=== PATIENT | male | born 1965 | race Caucasian/White ===

== ENCOUNTER 2022-03-19 16:37 | Emergency (ER) | payer SELFPAY ==
[2022-03-19 16:37] VITALS: BP 152/116; PULSE 89; RESP 16; TEMP 36.2; O2SAT 96; BMI 34.0
--- NOTE | 2022-03-19 17:21 | US_ITS ---
INDICATION: PAIN abd EXAMINATION: Ultrasound US Abdomen RUQ (limited) TECHNIQUE: Jones scale and color doppler imaging was performed of the right upper quadrant. COMPARISON: None. FINDINGS: LIVER: Hyperechoic liver with blunted internal architecture. Hypodense area adjacent to the gallbladder compatible focal fatty sparing. No focal hepatic lesion. There is no free fluid. GALLBLADDER AND BILIARY TREE: No shadowing gallstone, pericholecystic fluid or gallbladder wall thickening is demonstrated. The proximal common bile duct measures 4 mm, which is within normal limits for the patient''s age. Sonographic Chavez''s sign: Negative. PANCREAS: No focal abnormality is demonstrated in the pancreas. No pancreatic ductal dilatation. Head and tail is obscured by gas. RIGHT KIDNEY: 11.9 x 5.9 x 4.8 cm. No hydronephrosis. US/Gallbladder IMPRESSION: Hyperechoic liver compatible with hepatocellular disease such as steatosis. No other acute sonographic abnormality is demonstrated in the right upper quadrant. Electronically Signed: Kevin Cortes MD at 18:39 EST ,
--- NOTE | 2022-03-19 17:22 | EDS_ITS ---
HPI HPI - GI History of Present Illness Chief Complaint: Abd Pain Informant: patient Narrative Narrative: Patient has had right upper quadrant pain all day every day for the last year. He states sometimes it is worse after meals but not always. It is not better after meals but he has taken apple cider vinegar and water and made it better. It is not colicky. It sometimes radiates up to his right shoulder but that has happened about 6 times in the past year. He denies any pleuritic nature, chest symptoms, cough, dyspnea. He has had subjective fevers and chills for the past week with the last one being today. He states in that amount of time, the right upper quadrant pain has not been worse or different, as a matter fact he states today it is not nearly as bad as it had been. He states out of the last year since he has had the symptoms, today here now is the first time that he has had any of this evaluated by a healthcare practitioner. When I asked him if he has been jaundiced or itched all over, he states a week ago, he thought maybe he was a little yellow but he has a chronic vision problem in his left eye, and he is not sure. He asks his significant other she states she did not notice any jaundice. He states his stools have been normal. When asked if he has had melena he is not sure but he states he has had no blood. No urinary symptoms. [facility] Medical History Detached retina Home Medications NK 03/19/22 [History Last Taken Unknown] Allergy/AdvReac Type Severity Reaction Status Date / Time Penicillins Allergy PT UNSURE Verified 03/19/22 16:45 OF REACTION Surgical History (Updated 03/19/22 @ 16:46 by Veronika Oglesby) History of appendectomy Social History Smoking Status: Current every day smoker tobacco type: e-cigarettes ROS ROS ED Constitutional Constitutional ED: Denies chills or fever(s) Eyes Eyes: Denies change in vision or diplopia ENT ENT ED: Denies rhinorrhea or sore throat Cardiovascular Cardiovascular: Denies chest pain or palpitations Respiratory/Chest Respiratory/Chest: Denies cough or dyspnea Gastrointestinal Gastrointestinal: Reports abdominal pain and nausea; Denies diarrhea or vomiting Genitourinary Genitourinary ED: Denies dysuria or hematuria Musculoskeletal Musculoskeletal: Denies back pain or neck pain Integumentary Denies abscess, jaundice or rash Neurologic Neurologic: Denies headache(s), paresthesias or weakness Psychiatric Psychiatric: Denies anxiety or suicidal thoughts EXAM Physical Exam Const Vital Signs: 03/19/22 16:37 Temperature 97.2 F L Temperature Source Temporal Pulse Rate 89 Respiratory Rate 16 Blood Pressure 152/116 H Blood Pressure Mean 128 Pulse Ox 96 Oxygen Delivery Method Room Air Positive well nourished and well developed General Appearance ED: well developed and NAD HEENT Reports moist mucous membranes normocephalic and atraumatic Eyes PERRL and EOMs intact bilaterally General Eye ED: Negative for scleral icterus Neck full ROM and supple Resp normal respiratory effort and clear to auscultation bilaterally Cardio regular rate, regular rhythm and no murmurs Rate: Negative for tachycardic GI non-distended GI Narrative: Minimal right upper quadrant tenderness. No Chavez's. No other areas of tenderness. No palpable masses. Auscultation: normoactive bowel sounds Palpation: soft Back/Spine no CVA tenderness General Back: other FROM Extremity normal to inspection General Extremety ED: Negative for edema, pulses abnormal or tenderness General Extremity: Negative for edema or pulses abnormal Neuro oriented x3, CN's II-XII intact bilaterally and no sensory deficits noted Sensorium / Orientation: awake and alert Motor Exam: strength 5/5 throughout Skin no rashes or lesions noted and no wounds MDM MDM MDM Narrative Medical decision making narrative: I did some screening labs as well as an ultrasound of the right upper quadrant and urinalysis, all to work-up his right upper quadrant pain that has been there for a year. He states he drinks alcohol and at times heavily. He does not have withdrawal symptoms when he does not drink. His CMP, lipase, CBC all normal except for slight elevations of AST and ALT, less than 100, of unknown significance. He does not have hyperbilirubinemia. He does not have a leukocytosis or leftward shift. His ultrasound shows hepatic steatosis but is otherwise normal and does not show any evidence of gallbladder disease. He is not in a lot of pain right now. Given the fevers he was having, and the fact that I am not convinced that it has anything to do with the right upper quadrant pain he has been having for a year, I also did COVID, influenza, urinalysis, and a two-view chest x-ray which the mitral rotation looks normal. The rest of it was normal/negative as well. At this time GI is not on/available to discuss with but I think having him follow-up with them would be the next best thing, in addition to his PCP. I do not think he needs to be admitted for anything here. Patient does not have a PCP. He is referred to the next doctor on the unassigned list, Dr. Larsen. In discussing follow-up with the patient, he states he thinks he drinks too much. We both agree that curbing or stopping his drinking may help with this, it is related until proven otherwise as I discussed with him. Lab Data Attestation: I reviewed the patient's lab results. Labs: Laboratory Results - last 24 hr 03/19/22 03/19/22 03/19/22 17:23 17:23 18:16 WBC 6.6 RBC 4.96 Hgb 15.7 Hct 44.6 MCV 89.9 MCH 31.7 MCHC 35.2 RDW Std Deviation 38.8 RDW Coeff of Aguilar 11.9 Plt Count 205 MPV 9.7 Immature Gran % (Auto) 0.200 Neut % (Auto) 56.8 Lymph % (Auto) 27.1 [place] % (Auto) 11.8 H Eos % (Auto) 3.5 Baso % (Auto) 0.6 Absolute Neuts (auto) 3.8 Absolute Lymphs (auto) 1.80 Nucleated RBC % 0 Sodium 141 Potassium 4.0 Chloride 104 Carbon Dioxide 29.0 Anion Gap 8 BUN 17 Creatinine 1.13 Estim Creat Clear Calc 86.89 Est GFR (MDRD) Af Amer 87 Est GFR (MDRD) Non-Af 72 BUN/Creatinine Ratio 15.0 Glucose 100 Calcium 9.8 Total Bilirubin 0.30 AST 39 H ALT 67 H Alkaline Phosphatase 60 Total Protein 7.2 Albumin 3.7 Globulin 3.5 Albumin/Globulin Ratio 1.1 Lipase 129 Urine Color Yellow Urine Clarity Clear Urine pH 6.0 Ur Specific [place] 1.015 Urine Protein Negative Urine Glucose (UA) Normal Urine Ketones Negative Urine Occult Blood 50 H Urine Nitrite Negative Urine Bilirubin Negative Urine Urobilinogen Normal Ur Leukocyte Esterase Negative Urine RBC 0 SEEN Urine WBC 0 SEEN Ur Squamous Epith Cells 0 SEEN Urine Bacteria 0 SEEN Urine Mucus 0 SEEN Radiography Diagnostic Testing: Clinical Impression(s) from Imaging Studies Gallbladder Ultrasound 03/19/22 17:21 IMPRESSION: Hyperechoic liver compatible with hepatocellular disease such as steatosis. No other acute sonographic abnormality is demonstrated in the right upper quadrant. Electronically Signed: Kevin Cortes MD at 18:39 EST , Chest X-Ray 03/19/22 17:41 IMPRESSION: No radiographic evidence of acute cardiopulmonary disease. Electronically Signed: Kevin Cortes MD at 17:55 EST , Discharge Plan Triage Chief Complaint: Abd Pain ED Provider: Harvey Parker Dx/Rx/DC Orders Clinical Impression: Right upper quadrant pain, Hepatic steatosis, Subjective fever Prescriptions: No Action NK Primary Care Provider: Care Physician,No Primary Referrals: Annamarie Larsen MD [Med Staff - [employer]riving [employer]] - (primary care) Guanako Marsh DO [Med Staff - Active Staff] - (gastroenterology) NOT,DEFINED [Non-Staff] - Disposition Disposition: Home, Self Care
--- NOTE | 2022-03-19 17:41 | RAD_ITS ---
INDICATION: Pain R chest/RUQ, fevers EXAMINATION/TECHNIQUE: X-RAY - XR Chest 2 Views COMPARISON: None. FINDINGS: LINES/DEVICES: None. LUNGS: No consolidation, edema or effusion. No pneumothorax. MEDIASTINUM AND CARDIOVASCULAR STRUCTURES: Cardiac silhouette not enlarged. Central airways and mediastinal contour are unremarkable. RAD/Chest PA and Lateral IMPRESSION: No radiographic evidence of acute cardiopulmonary disease. Electronically Signed: Kevin Cortes MD at 17:55 EST ,
[2022-03-19 17:53] LABS: Absolute Neutrophil Count 3.8 X10^3/uL (2.0-7.7); Basophil# 0.04 X10^3/uL; Basophil% 0.6 % (0-1); Eosinophil# 0.23 X10^3/uL; Eosinophils% 3.5 % (0-5); Hematocrit 44.6 % (40-54); Hemoglobin 15.7 g/dL (13.0-16.5); Lymphocyte % 27.1 % (19-41); Mean Corp Hgb Conc 35.2 g/dL (32-36); Mean Corpuscular Hgb 31.7 pg (27.0-32.0); Mean Corpuscular Volume 89.9 fL (80-94); Mean Platelet Vol. 9.7 fl (6.2-12.0); Monocyte# 0.78 X10^3/uL; Monocyte% 11.8 % (0-10); NRBC Flagged by Analyzer 0 % (0-5); Neutrophil # 3.77 X10^3/uL (2.7-7.7); Neutrophil % 56.8 % (47-70); Platelet Count 205 K/mm3 (150-450); RBC Distribution Width CV 11.9 % (11.6-14.6); RBC Distribution Width SD 38.8 fl (35.1-43.9); Red Blood Count 4.96 M/mm3 (4.6-6.2); White Blood Count 6.6 K/mm3 (4.4-11.0)
[2022-03-19 18:04] LABS: ALB/GLOB Ratio 1.1 RATIO (0.9-2.4); AST(SGOT) 39 U/L (15-37); Alanine Aminotransfer ALT/SGPT 67 U/L (16-61); Albumin, Serum 3.7 g/dL (3.2-5.0); Alkaline Phosphatase 60 U/L (45-117); Anion Gap 8 (5-15); BUN 17 mg/dL (7-18); Calcium,Total 9.8 mg/dL (8.5-10.1); Chloride 104 mmol/L (98-107); Creatinine, Serum 1.13 mg/dL (0.70-1.30); EST Glomerular Filtration Rate 72 mL/min (>60); Est Glom Filt Rate - Afr Amer 87 mL/min (>60); Estimated Creatinine Clearance 86.89 ml/min; Globulin 3.5 g/dL (2.2-4.2); Glucose 100 mg/dL (74-106); Lipase 129 U/L (73-393); Protein, Total 7.2 g/dL (6.4-8.2); Sodium Level 141 mmol/L (136-145)
[2022-03-19 18:23] LABS: Bacteria 0 SEEN /hpf (None Seen); Mucous, Urine 0 SEEN /hpf (<or=2+); Red Blood Cells-Urine 0 SEEN /hpf (0-5); Squamous Epithelial Cells - UA 0 SEEN /hpf (0-5); White Blood Cells 0 SEEN /hpf (0-5)
[2022-03-19 18:26] LABS: Color, Urine Yellow (Yellow); Glucose, Dipstick Normal (Normal); Ketone-Dipstick Negative (Negative); Leukocyte Esterase-Dipstick Negative /ul (Negative); Nitrite-Dipstick Negative (Negative); Occult Blood-Urine 50 /ul (Negative); Protein-Dipstick Negative (Negative); Specific Gravity, Urine 1.015 (1.002-1.030); Urine Bilirubin Dipstick Negative (Negative); Urine Clarity Clear (Clear); Urine Urobilinogen Normal (Normal)
== END 2022-03-19 19:59 | disposition home or self-care (01) ==
PROVIDERS: Emergency Provider Emergency Medicine; Visit Provider Emergency Medicine
DX: R10.11 Right upper quadrant pain (principal); K76.0 Fatty (change of) liver, not elsewhere classified; Z20.822 Contact with and (suspected) exposure to COVID-19; F17.290 Nicotine dependence, other tobacco product, uncomplicated
CPT/HCPCS: 71046; 76705; 80053; 81001; 83690; 85025; 87428; 99283; A4216